=== PATIENT | female | born 1995 ===

== ENCOUNTER 2017-12-14 19:27 | Emergency (ER) | payer OTHER ==
[2017-12-14 19:48] VITALS: BP 116/72; PULSE 87; TEMP 99; O2SAT 98
--- NOTE | 2017-12-14 20:08 | C.PDOC ---
History Of Present Illness 22 year old female presents to the ED complaining of left wrist pain radiating to left forearm and elbow for 2 weeks. Pain is intermittent and worse with movement of the wrist. Patient has trouble combing hair, typing, or doing heavy lifting. She denies any trauma/fall, numbness, weakness, or tingling. Time Seen by Provider: 12/14/17 19:49 Chief Complaint (Nursing): Upper Extremity Problem/Injury History Per: Patient History/Exam Limitations: no limitations Onset/Duration Of Symptoms: Days Current Symptoms Are (Timing): Still Present Quality: "Pain" Exacerbating Factor(s): Movement Past Medical History Reviewed: Historical Data, Nursing Documentation, Vital Signs Vital Signs: Last Vital Signs Temp 99 F 12/14/17 19:36 Pulse 87 12/14/17 19:36 Resp 16 12/14/17 19:36 BP 116/72 12/14/17 19:36 Pulse Ox 98 12/14/17 20:13 - Medical History PMH: No Chronic Diseases Surgical History: No Surg Hx Family History: States: No Known Family Hx - Social History Hx Alcohol Use: No Hx Substance Use: No - Immunization History Hx Tetanus Toxoid Vaccination: No Hx Influenza Vaccination: No Hx Pneumococcal Vaccination: No Review Of Systems Except As Marked, All Systems Reviewed And Found Negative. Musculoskeletal: Positive for: Other (Left wrist pain radiating to left forearm and elbow ) Neurological: Negative for: Weakness, Numbness Physical Exam - Physical Exam Appears: Non-toxic, No Acute Distress Skin: Warm, Dry, No Rash Head: Atraumatic, Normacephalic Eye(s): bilateral: Normal Inspection Nose: Normal Oral Mucosa: Moist Neck: Supple Chest: Symmetrical Extremity: Normal ROM, No Tenderness (Left wrist ), Capillary Refill (< 2sec to left wrist ), No Deformity (Left wrist ), No Swelling (Left wrist ), Other (5/5 strength against resistance of left wrist) Extremity: Bilateral: Atraumatic, Normal Color And Temperature, Normal ROM Pulses: Left Radial: Normal, Right Radial: Normal Neurological/Psych: Oriented x3, Normal Speech, Normal Motor, Normal Sensation Gait: Steady ED Course And Treatment O2 Sat by Pulse Oximetry: 98 (RA) Pulse Ox Interpretation: Normal Progress Note: On assessment patient advised to take Motrin for pain every 6 hours. Instructed to follow up with PMD / Hand surgeon. Wrist splint applied by CP. Disposition Counseled Patient/Family Regarding: Diagnosis, Need For Followup, Rx Given - Disposition Referrals: Sherwin Joshua MD [Staff Provider] - Disposition: HOME/ ROUTINE Disposition Time: 20:04 Condition: STABLE Additional Instructions: Please follow up with PMD / Hand surgeon Take motrin for pain every 6 h Wear a wrist brace for support Return to ER if worse Instructions: Tendonitis Forms: [facility] (Kyr[place]z), Work Excuse - Clinical Impression Clinical Impression: Wrist pain, left - PA / [employer] / Resident Statement MD/DO has reviewed & agrees with the documentation as recorded. - Scribe Statement The provider has reviewed the documentation as recorded by the Scribe Lizy Hoyt All medical record entries made by the Myla were at my direction and personally dictated by me. I have reviewed the chart and agree that the record accurately reflects my personal performance of the history, physical exam, medical decision making, and the department course for this patient. I have also personally directed, reviewed, and agree with the discharge instructions and disposition.
[2017-12-14 20:39] VITALS: RESP 20
== END 2017-12-14 20:38 | disposition home or self-care (01) ==
LOC: C.ER 19:27
DX: M25.532 Pain in left wrist (principal)